=== PATIENT | male | born 1930 | race Caucasian/White ===

== ENCOUNTER 2018-08-31 17:16 | Inpatient (IN) ==
[2018-08-31] MEDS ORDERED: methylPREDNISolone 125 MG/2 ML VIAL IVP ONE (18:28)
[2018-08-31] MEDS ORDERED: Ipratropium/Albuterol Neb 3 ML IH ONE (18:28)
--- NOTE | 2018-08-31 18:38 | Emergency Department Note ---
Disposition Clinical Impression: Acute exacerbation of chronic obstructive airways disease Congestive heart failure Qualifiers: Heart failure type: unspecified Heart failure chronicity: acute on chronic Qualified Code(s): I50.9 - Heart failure, unspecified Disposition: Home, Self-Care Condition: Good Referrals: Agustin Burgess MD [Primary Care Provider] - Time of Disposition: 20:55 SOB HPI - General Chief Complaint: ED Shortness of Breath/Dyspnea Stated Complaint: COPD with wheezing Time Seen by Provider: 08/31/18 17:36 Source: patient, EMS Mode of arrival: EMS Limitations: age Nursing Notes Reviewed: Yes Vital Signs Reviewed: Yes - History of Present Illness Patient presents to the ED via EMS with complaint of shortness of breath. States that he is always a little short of breath but has been worse over the past 3 days with an increase in his usual wheezing. He states symptoms are worse when he is up ambulating and got really bad today when he got out of the shower. He reports a dry cough as well as some rhinorrhea. No sore throat or chest pain. No fever or chills. He has lower extremity swelling which he states is chronic and has not changed. He takes Lasix twice a day for this. states that his PCP ordered an echo a few months ago to check on his heart and told him that he has a little bit of fluid around his heart. He is not aware of a diagnosis of CHF however. He admits to orthopnea but no PND. He was diagnosed with COPD a year ago. He does use albuterol and states he used it 3 times today but only got brief relief. He has are poor historian regarding medications to uses a mail order service. No recent travel or sick contacts. He also has high blood pressure. - Related Data Home Medications Medication Instructions Recorded Confirmed Allopurinol [Zyloprim 100 MG] 100 mg PO DAILY 08/31/18 08/31/18 Furosemide [Lasix] 20 mg PO BID 08/31/18 08/31/18 Hydrochlorothiazide [Microzide] 12.5 mg PO 08/31/18 Tamsulosin HCl [Flomax] 0.4 mg PO 08/31/18 Allergies Allergy/AdvReac Type Severity Reaction Status Date / Time No Known Allergies Allergy Unverified 07/29/15 12:09 Constitutional: Denies: fever, chills, weakness, weight change Eyes: Denies: eye pain, eye discharge, vision change ENT ED: Denies: ear pain, throat pain, dental pain, hearing loss, epistaxis, congestion, dysphagia Cardiovascular: Reports: dyspnea on exertion, edema. Denies: chest pain, palpitations, orthopnea, syncope, paroxysmal nocturnal dyspnea Respiratory: Reports: cough, dyspnea, wheezes. Denies: hemoptysis, stridor, sputum production Gastrointestinal: Denies: abdominal pain, nausea, vomiting, diarrhea, constipation, hematemesis, melena, hematochezia Genitourinary: Denies: urgency, dysuria, frequency, hematuria Musculoskeletal: Denies: back pain, neck pain, arthralgia, myalgia Integumentary: Denies: rash, abrasion, lesions Neurological: Denies: headache, weakness, numbness, paresthesias, confusion, abnormal gait, vertigo Psychiatric: Denies: anxiety, depression, suicidal thoughts, homicidal thoughts, auditory hallucinations, visual hallucinations Endocrine: Denies: fatigue Hematological/Lymphatic: Denies: easy bleeding, easy bruising Allergic/Immunologic: Denies: facial swelling, urticaria Past Medical History - Past Medical History Medical history: Reports: COPD, hypertension, other Psychiatric history: Reports: no psych history - Social History Smoking Status: Never smoker Smokeless Tobacco Status: No Alcohol use: Reports: none Drug use: Reports: none Physical Exam - General Limitations: age General appearance: alert, in no apparent distress - Head Head exam: atraumatic, normocephalic, normal inspection - Eye Eye exam: Present: normal appearance, PERRL, EOMI - ENT ENT exam: normal exam, normal oropharynx, mucous membranes moist - Neck Neck exam: Present: normal inspection, full ROM, trachea midline - Chest Chest inspection: Present: normal inspection, symmetric chest wall rise - Respiratory Respiratory exam: Present: wheezes, prolonged expiratory phase. Absent: respiratory distress - Expanded Respiratory Exam Location: wheezes: Left, Right, Upper, Lower - Cardiovascular Cardiovascular exam: Present: regular rate, normal rhythm, normal heart sounds - Abdominal Exam Abdominal exam: Present: soft, Non-Tender. Absent: tenderness, distention, guarding, rebound, rigidity - Extremities Exam Extremities exam: Present: normal inspection, full ROM, pedal edema (2+ bilaterally). Absent: tenderness - Neurological Exam Neurological exam: Present: alert, oriented X3 - Psychiatric Psychiatric exam: Present: normal affect, normal mood - Skin Skin exam: Present: warm, dry, intact, normal color Course Course Narrative: Presents to the ED with a chronic shortness of breath and wheezing is worse over the past few days only partially relieved with albuterol. On arrival he is mildly hypertensive. Oxygen saturation is 98% on 2 L. He was apparently 93% on room air according to EMS. He had is diffuse wheezing on exam. He will be given a nebulizer treatment and steroids. He also has significant lower extremity edema. Will check chest x-ray and lab work as well. - Reevaluation(s) Reevaluation #1: Lab work shows a chronic stable anemia. Troponin is negative. BNP is elevated at 348. Creatinine is elevated but stable from 3 months ago. Chest x-ray did not show any acute abnormalities. EKG is sinus arrhythmia. Review of his echo from May shows an EF of 50-55% with some mild left diastolic dysfunction, aortic regurg, tricuspid regurg. On reassessment patient states his breathing is a little better and he does have less wheezing. I suspect his symptoms are combination of both COPD and CHF exacerbation and he would benefit from admission for continued respiratory treatments, steroids and IV Lasix. Patient is in agreement. I spoke to the hospitalist precision lens polisher, Dr. Hooks, who has accepted the patient. Time: 20:53 Vital Signs Temperature 98.3 F 08/31/18 17:18 Pulse Rate 68 08/31/18 17:18 Respiratory Rate 18 08/31/18 17:18 Blood Pressure 165/80 08/31/18 17:18 O2 Sat by Pulse Oximetry 98 08/31/18 17:18 Temperature 98.3 F 08/31/18 17:18 Pulse Rate 89 08/31/18 20:34 Respiratory Rate 16 08/31/18 20:34 Blood Pressure 176/107 08/31/18 20:34 O2 Sat by Pulse Oximetry 94 08/31/18 20:34 Oxygen Delivery Oxygen Delivery Nasal Cannula Shortness of Breath/Dyspnea - Differential Diagnosis Likely: acute exacerbation of chronic obstructive airways disease, congestive heart failure - Medical Records Medical records reviewed: Yes I reviewed the patient's medical records. - Lab Data Lab results reviewed: Yes I reviewed the patient's lab results. Result diagrams: 08/31/18 18:42 08/31/18 18:42 Lab Results 08/31/18 08/31/18 08/31/18 Range/Units 18:42 18:42 18:42 WBC 7.1 (4.3-11.1) K/mcL RBC 2.99 L (4.19-5.50) M/mcL Hgb 10.5 L (12.9-16.9) g/dL Hct 31.0 L (37.5-50.1) % MCV 103.7 H (83.0-100.0) fL MCH 35.1 H (28.0-33.3) pg MCHC 33.9 (31.6-35.5) g/dL RDW 14.4 (11.5-14.5) % Plt Count 135 L (140-400) K/mcL MPV 11.2 (9.4-12.4) fL Immature Gran % 0.4 (0-4) % Seg Neutrophils % 71.1 % Lymphocytes % 11.4 % Monocytes % 12.1 % Eosinophils % 4.4 % Basophils % 0.6 % Neutrophils # 5.0 (1.6-8.9) K/mcL Lymphocytes # 0.8 (0.6-4.6) K/mcL Monocytes # 0.9 (0.0-1.3) K/mcL Eosinophils # 0.3 (0.0-0.6) K/mcL Basophils # 0.0 (0.0-0.2) K/mcL Sodium 139 (136-145) mEq/L Potassium 4.8 (3.5-5.1) mEq/L Chloride 103 (98-107) mEq/L Carbon Dioxide 30 H (23-29) mEq/L BUN 32 H (8-23) mg/dL Creatinine 1.42 H (0.70-1.30) mg/dL Est GFR ( Amer) 57 L (> 60) Est GFR (Non-Af Amer) 47 L (> 60) BUN/Creatinine Ratio 23 (6-26) Glucose 93 (70-105) mg/dL Calculated Osmolality 295 (280-300) Calcium 8.3 L (8.6-10.3) mg/dL Troponin I < 0.03 (< 0.04) ng/mL B-Natriuretic Peptide 348 H (Less than 100) pg/mL - Radiology Data Radiology results reviewed: Yes I reviewed the patient's radiology results. ITS Impressions Chest X-Ray 08/31/18 18:28 IMPRESSION: No acute findings. D/ / Nahid Espinoza MD / Nahid Espinoza MD Interpreting Provider: Nahid Espinoza MD - EKG Data EKG attestation: Yes I reviewed and interpreted this EKG. EKG shows normal: Reports: sinus rhythm Rate: Reports: normal Rhythm: Reports: arrhythmia Scenic/QRS: Reports: normal When compared to previous EKG there are: previous EKG unavailable Interpretation: Reports: no acute changes
[2018-08-31 18:51] LABS: Basophils % 0.6 %; Eosinophils # 0.3 K/mcL (0.0-0.6); Eosinophils % 4.4 %; Hemoglobin 10.5 g/dL (12.9-16.9); Immature Granulocytes % 0.4 % (0-4); Lymphocytes # 0.8 K/mcL (0.6-4.6); Lymphocytes % 11.4 %; Mean Corpuscular HGB Conc 33.9 g/dL (31.6-35.5); Mean Corpuscular Hemoglobin 35.1 pg (28.0-33.3); Mean Corpuscular Volume 103.7 fL (83.0-100.0); Mean Platelet Volume 11.2 fL (9.4-12.4); Monocytes # 0.9 K/mcL (0.0-1.3); Monocytes % 12.1 %; Platelet Count 135 K/mcL (140-400); Red Blood Count 2.99 M/mcL (4.19-5.50); Red Cell Distribution Width 14.4 % (11.5-14.5); Segmented Neutrophils % 71.1 %; White Blood Count 7.1 K/mcL (4.3-11.1)
[2018-08-31 19:10] LABS: BUN/Creatinine Ratio 23 (6-26); Blood Urea Nitrogen 32 mg/dL (8-23); Calcium 8.3 mg/dL (8.6-10.3); Carbon Dioxide 30 mEq/L (23-29); Chloride 103 mEq/L (98-107); Glucose 93 mg/dL (70-105); Osmolality,Calculated 295 (280-300); Potassium 4.8 mEq/L (3.5-5.1); Sodium 139 mEq/L (136-145); Troponin I < 0.03 ng/mL (< 0.04); eGFR For African Americans 57 (> 60); eGFR For Non-African Americans 47 (> 60)
[2018-08-31] MEDS ORDERED: Naloxone 0.4 MG/ML INJ IVP PRN ×2 (20:56→21:55)
[2018-08-31] MEDS ORDERED: Furosemide 20 MG/2 ML VIAL IVP ONE (20:58)
[2018-08-31] MEDS ORDERED: Ipratropium/Albuterol Neb 3 ML IH SCH (21:00)
[2018-08-31] MEDS ORDERED: amLODIPine 5 MG TABLET PO ONE (22:31)
[2018-09-01] MEDS: Ipratropium/Albuterol Neb 3 ML IH SCH ×3 (01:16→05:52)
[2018-09-01] MEDS ORDERED: Ipratropium/Albuterol Neb 3 ML IH SCH (12:00)
--- NOTE | 2018-09-01 12:21 | Internal Med History&Physical ---
Date of Encounter: 09/01/18 Time of Encounter: 11:45 Assessment and Plan (1) Congestive heart failure Current visit: Yes Status: Acute IV Lasix was given in emergency room and will be continued. Coreg and lisinopril will also be started. Qualifiers: Heart failure type: diastolic Heart failure chronicity: acute on chronic Qualified Code(s): I50.33 - Acute on chronic diastolic (congestive) heart failure (2) Macrocytic anemia Current visit: Yes Status: Acute Anemia testing will be ordered. (3) Hypertension Current visit: Yes Status: Chronic Blood pressure has been consistently elevated above desirable range since admission. Start lisinopril and Coreg with IV Lasix Qualifiers: Hypertension type: essential hypertension Qualified Code(s): I10 - Essential (primary) hypertension (4) CKD (chronic kidney disease) stage 3, GFR 30-59 ml/min Current visit: Yes Status: Chronic Monitor renal indices. (5) Gout Current visit: Yes Status: Chronic Uric acid level was 4.2 on 05/31/2018. Continue present dose allopurinol. Qualifiers: Gout site: unspecified site Gout etiology: unspecified cause Chronicity: chronic Presence of tophus: without tophus Qualified Code(s): M1A.9XX0 - Chronic gout, unspecified, without tophus (tophi) (6) Elevated TSH Current visit: Yes Status: Acute TSH was 6.107 on 05/31/2018. Recheck in a.m. Internal Medicine - H&P: HPI Chief complaint: Dyspnea Admitted From: Emergency Dept Plans for Post Hospital Care: Home History of present illness: Mr. Myles is a 88 year old male who came to emergency room complaining of increased dyspnea over the preceding 3 days. It had worsened the morning of admission. He was evaluated in emergency room and was felt to have exacerbation of COPD. He was admitted to [facility] floor for ongoing care needs. Respiratory history is significant for being a lifelong nonsmoker. Pulmonary function testing 05/26/2017 showed FVC 63% predicted, FEV1 62% predicted, FEV1/FVC 60%, MVV 54% predicted, RV 120% predicted, and DLCO (corrected) 61%. There was insignificant change in FEV1 and FVC postbronchodilator. 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 Cardiovascular history is significant for hypertension. Echocardiogram 05/26/2018 showed LVEF of 50-55%. E/A ratio was 0.7. There was mild aortic regurgitation and mild tricuspid regurgitation. A small pericardial effusion without evidence of tamponade was seen. Estimated RVSP was 49 mmHg. He denies [place] DVT or pulmonary embolus. Regadenoson EST 07/29/2015 showed LVEF of 51%. Perfusion imaging was negative for ischemia or infarct. EKG portion was nondiagnostic for ischemia. Past Med Surg Social Fam HX - Past Medical History Medical history: COPD, hypertension, other Psychiatric history: no psych history - Past Surgical History Additional surgical history: Bilateral knees - Social History Smoking Status: Never smoker Smokeless Tobacco Status: No Alcohol use: none Drug use: none - Family History Mother Living Status: Internal Medicine - H&P: Meds Allopurinol [Zyloprim 100 MG] 100 mg PO DAILY 08/31/18 [History] Furosemide [Lasix] 20 mg PO BID 08/31/18 [History] Hydrochlorothiazide [Microzide] 12.5 mg PO 08/31/18 [History] Tamsulosin HCl [Flomax] 0.4 mg PO 08/31/18 [History] Allergy/AdvReac Type Severity Reaction Status Date / Time No Known Allergies Allergy Unverified 07/29/15 12:09 All Systems PM: A 10-system review of systems was performed and is negative for pertinent findings except as documented above in the HPI. Review of systems: Gen.: He states his weight has been stable for several months Cardiovascular: As per history of present illness Respiratory: As per history of present illness GI: He denies disorders of his liver gallbladder or exocrine pancreas : He has BPH. He had prostate CA diagnosed 2008 and had 46 XRT. He is presumed cancer free. He was unaware he had chronic kidney disease stage 3 on all labs since April 2016 Neurologic: He denies large distribution strokes or seizures. Endocrine: He denies diabetes thyroid disease or hyperlipidemia Hematology/oncology: He had prostate cancer as mentioned. He was unaware he had macrocytic anemia. He denies other blood disorders or internal malignancies Psychiatric: He has feelings of depression at times but is not on medication. He denies other mental health diagnoses. [place] skeletal: He has history of gout. He had bilateral total knee replacements 1995. - Constitutional Vitals: Temp Pulse Resp BP Pulse Ox 97.8 F 77 22 161/81 97 09/01/18 10:56 09/01/18 10:56 09/01/18 10:56 09/01/18 10:56 09/01/18 10:56 Exam: Gen.: He is a well-developed obese male lying in bed who appears slightly dyspneic HEENT: Head is atraumatic and normocephalic. Eyes: EOMI. There is no scleral icterus. Mouth: Mucosa is moist. Neck: Supple and nontender. There is no thyromegaly or adenopathy noted. Heart: Regular without murmurs gallops or ectopics Lungs: No wheezes crackles or egophony are heard Abdomen: He has a large abdomen. It is nontender to palpation. He has a 3 cm umbilical hernia which is easily reducible. Extremities: He has 3+ edema of the dorsum of feet and lower legs bilaterally. Dorsalis pedis and posterior tibial pulses are not palpable. Neurologic: Mental status: He is talkative and seems to be a good historian. He is slightly hard of hearing. Cranial nerves: Smile is symmetric. Forehead wri nkles bilaterally. Tongue protrudes midline. EOMI. Motor: There is no pronator drift. Cerebellar: Finger to nose is intact bilaterally. Skin: Warm and dry. He has well-healed surgical scars over his knees bilaterally. Internal Med - H&P Results - Labs CBC & Chem 7: 08/31/18 18:42 08/31/18 18:42 Labs: Short CBC 08/31/18 Range/Units 18:42 WBC 7.1 (4.3-11.1) K/mcL Hgb 10.5 L (12.9-16.9) g/dL Hct 31.0 L (37.5-50.1) % Plt Count 135 L (140-400) K/mcL Neutrophils # 5.0 (1.6-8.9) K/mcL BMP 08/31/18 18:42 Sodium 139 Potassium 4.8 Chloride 103 Carbon Dioxide 30 H BUN 32 H Creatinine 1.42 H Glucose 93 Calcium 8.3 L Cardiac Enzymes 08/31/18 Range/Units 18:42 Troponin I < 0.03 (< 0.04) ng/mL - Impressions ITS Impressions Chest X-Ray 08/31/18 18:28 IMPRESSION: No acute findings. D/ / Nahid Espinoza MD / Nahid Espinoza MD Interpreting Provider: Nahid Espinoza MD - VTE Reasons for not Prescribing Prophylaxis: Treatment not Indicated - Low risk for VTE
[2018-09-01] MEDS: Furosemide 40 MG/4 ML VIAL IVP SCH ×2 (15:05→17:07)
[2018-09-02] MEDS: *HR* Enoxaparin 40 MG/0.4 ML SYRINGE SQ SCH (05:59)
[2018-09-02 06:45] LABS: Basophils % 0.1 %; Hematocrit 31.2 % (37.5-50.1); Hemoglobin 10.4 g/dL (12.9-16.9); Immature Granulocytes % 0.8 % (0-4); Lymphocytes # 0.8 K/mcL (0.6-4.6); Mean Corpuscular HGB Conc 33.3 g/dL (31.6-35.5); Mean Corpuscular Hemoglobin 34.4 pg (28.0-33.3); Mean Corpuscular Volume 103.3 fL (83.0-100.0); Mean Platelet Volume 11.1 fL (9.4-12.4); Monocytes % 8.8 %; Neutrophils # 9.8 K/mcL (1.6-8.9); Platelet Count 162 K/mcL (140-400); Red Blood Count 3.02 M/mcL (4.19-5.50); Red Cell Distribution Width 14.1 % (11.5-14.5); Segmented Neutrophils % 83.3 %; White Blood Count 11.8 K/mcL (4.3-11.1)
[2018-09-02 07:08] LABS: Magnesium 2.3 mg/dL (1.6-2.6)
[2018-09-02 07:25] LABS: Thyroid Stimulating Hormone 1.269 mcIU/mL (0.340-5.600)
[2018-09-02 09:46] LABS: Folate 12.3 ng/mL (3.0-16.0)
[2018-09-02] MEDS: Furosemide 40 MG/4 ML VIAL IVP SCH ×2 (09:52→17:26)
--- NOTE | 2018-09-02 16:45 | Internal Med Progress Note ---
Date of Encounter: 09/02/18 Time of Encounter: 16:30 - Assessment and plan (1) Congestive heart failure Current Visit: Yes Status: Acute Assessment and plan: September 02. Continue Coreg, lisinopril, and IV Lasix. Chest x-ray will be ordered to further evaluate dyspnea. Qualifiers: Heart failure type: diastolic Heart failure chronicity: acute on chronic Qualified Code(s): I50.33 - Acute on chronic diastolic (congestive) heart failure (2) Macrocytic anemia Current Visit: Yes Status: Acute Assessment and plan: September 02. Anemia testing showed iron 67, transferrin saturation 24%, transferrin 199, ferritin 112, B12 284, and folate 12.3. TSH was normal at 1.269. Hemoglobin minimally changed at 10.4. (3) Hypertension Current Visit: Yes Status: Chronic Assessment and plan: September 02. Blood pressure improved. Continue lisinopril and Coreg with IV Lasix. Qualifiers: Hypertension type: essential hypertension Qualified Code(s): I10 - Essential (primary) hypertension (4) CKD (chronic kidney disease) stage 3, GFR 30-59 ml/min Current Visit: Yes Status: Chronic Assessment and plan: September 02. Monitor renal indices. (5) Gout Current Visit: Yes Status: Chronic Assessment and plan: September 02. Uric acid level normal at 4.2 on 05/31/2018. Continue present dose allopurinol. Qualifiers: Gout site: unspecified site Gout etiology: unspecified cause Chronicity: chronic Presence of tophus: without tophus Qualified Code(s): M1A.9XX0 - Chronic gout, unspecified, without tophus (tophi) (6) Elevated TSH Current Visit: Yes Status: Acute Assessment and plan: September 02. TSH normal at 1.269. - Subjective Interval history: September 02. He has had worsening dyspnea onset earlier today. He denies any pain. - Constitutional Vitals: Temp Pulse Resp BP Pulse Ox 97.2 F L 71 22 131/66 98 09/02/18 14:38 09/02/18 14:38 09/02/18 14:38 09/02/18 14:38 09/02/18 14:38 Exam: He has prolonged expiratory phase and mild diffuse wheezing. No inspiratory crackles are heard. Edema has lessened slightly in his lower legs. I reviewed his medications and lab results. Internal Medicine: Result - Labs CBC & Chem 7: 09/02/18 06:38 08/31/18 18:42 Labs: Short CBC 09/02/18 Range/Units 06:38 WBC 11.8 H D (4.3-11.1) K/mcL Hgb 10.4 L (12.9-16.9) g/dL Hct 31.2 L (37.5-50.1) % Plt Count 162 (140-400) K/mcL Neutrophils # 9.8 H (1.6-8.9) K/mcL - VTE Reasons for not Prescribing Prophylaxis: Treatment not Indicated - Low risk for VTE Consult Discharge Plan - Plan
[2018-09-02 17:07] LABS: Basophils % 0.1 %; Eosinophils % 0.3 %; Hemoglobin 10.2 g/dL (12.9-16.9); Immature Granulocytes % 0.6 % (0-4); Lymphocytes # 1.1 K/mcL (0.6-4.6); Lymphocytes % 11.2 %; Mean Corpuscular HGB Conc 32.9 g/dL (31.6-35.5); Mean Corpuscular Hemoglobin 34.6 pg (28.0-33.3); Mean Corpuscular Volume 105.1 fL (83.0-100.0); Mean Platelet Volume 10.7 fL (9.4-12.4); Monocytes # 0.9 K/mcL (0.0-1.3); Monocytes % 9.1 %; Neutrophils # 7.9 K/mcL (1.6-8.9); Platelet Count 157 K/mcL (140-400); Red Blood Count 2.95 M/mcL (4.19-5.50); Red Cell Distribution Width 14.6 % (11.5-14.5); Segmented Neutrophils % 78.7 %
[2018-09-02 17:25] LABS: Potassium 4.5 mEq/L (3.5-5.1)
[2018-09-02] MEDS ORDERED: Albuterol 2.5 MG/3 ML NEBULIZER IH PRN (18:23)
[2018-09-03] MEDS: *HR* Enoxaparin 40 MG/0.4 ML SYRINGE SQ SCH (05:52)
[2018-09-03] MEDS: Furosemide 40 MG/4 ML VIAL IVP SCH (09:59)
--- NOTE | 2018-09-03 10:19 | Internal Med Progress Note ---
Date of Encounter: 09/03/18 Time of Encounter: 10:10 - Assessment and plan (1) Congestive heart failure Current Visit: Yes Status: Acute Assessment and plan: September 02. Continue Coreg, lisinopril, and IV Lasix. Chest x-ray will be ordered to further evaluate dyspnea. September 03. BN peptide decreased yesterday to 220. Chest x-ray showed no acute pathology. Continue Coreg. Reduce IV Lasix and discontinue lisinopril because of worsening azotemia. Imdur will be started. Qualifiers: Heart failure type: diastolic Heart failure chronicity: acute on chronic Qualified Code(s): I50.33 - Acute on chronic diastolic (congestive) heart failure (2) Macrocytic anemia Current Visit: Yes Status: Acute Assessment and plan: September 02. Anemia testing showed iron 67, transferrin saturation 24%, transferrin 199, ferritin 112, B12 284, and folate 12.3. TSH was normal at 1.269. Hemoglobin minimally changed at 10.4. (3) Hypertension Current Visit: Yes Status: Chronic Assessment and plan: September 02. Blood pressure improved. Continue lisinopril and Coreg with IV Lasix. September 03. Discontinue lisinopril and reduce IV Lasix due to worsening azotemia. Continue Coreg. Qualifiers: Hypertension type: essential hypertension Qualified Code(s): I10 - Essential (primary) hypertension (4) CKD (chronic kidney disease) stage 3, GFR 30-59 ml/min Current Visit: Yes Status: Chronic Assessment and plan: September 02. Monitor renal indices. September 03. BUN and creatinine have risen to 65 and 1.81 respectively yesterday. Discontinue lisinopril and reduce IV Lasix. (5) Gout Current Visit: Yes Status: Chronic Assessment and plan: September 02. Uric acid level normal at 4.2 on 05/31/2018. Continue present dose allopurinol. Qualifiers: Gout site: unspecified site Gout etiology: unspecified cause Chronicity: chronic Presence of tophus: without tophus Qualified Code(s): M1A.9XX0 - Chronic gout, unspecified, without tophus (tophi) (6) Elevated TSH Current Visit: Yes Status: Acute Assessment and plan: September 02. TSH normal at 1.269. - Subjective Interval history: September 02. He has had worsening dyspnea onset earlier today. He denies any pain. September 03. He has no new complaints. - Constitutional Vitals: Temp Pulse Resp BP Pulse Ox 98.1 F 62 22 141/68 100 09/03/18 07:30 09/03/18 07:30 09/03/18 07:30 09/03/18 07:30 09/03/18 07:30 Exam: He is resting comfortably in bed. Lungs show slight expiratory wheezing more on the right than the left. Heart is regular without murmurs gallops or ectopics. Extremities show further decreased edema. I reviewed his medications and lab results. Internal Medicine: Result - Labs CBC & Chem 7: 09/02/18 16:55 09/02/18 16:55 Labs: Short CBC 09/02/18 Range/Units 16:55 WBC 10.0 (4.3-11.1) K/mcL Hgb 10.2 L (12.9-16.9) g/dL Hct 31.0 L (37.5-50.1) % Plt Count 157 (140-400) K/mcL Neutrophils # 7.9 (1.6-8.9) K/mcL BMP 09/02/18 16:55 Sodium 142 Potassium 4.5 Chloride 106 Carbon Dioxide 28 BUN 65 H Creatinine 1.81 H Glucose 100 Calcium 8.0 L - Impressions Impressions Chest X-Ray 09/02/18 16:40 IMPRESSION: No acute process. D/ / Darell Tran MD / Darell Tran MD Interpreting Provider: Darell Tran MD - VTE Reasons for not Prescribing Prophylaxis: Treatment not Indicated - Low risk for VTE Consult Discharge Plan - Plan Referrals: Agustin Burgess MD [Primary Care Provider] - 1 week
[2018-09-03] MEDS: Isosorbide MONOnitrate (24 HR) 30 MG TAB.ER.24H PO SCH (11:53)
[2018-09-04] MEDS: *HR* Enoxaparin 40 MG/0.4 ML SYRINGE SQ SCH (05:46)
[2018-09-04 06:07] LABS: Basophils % 0.4 %; Eosinophils # 0.3 K/mcL (0.0-0.6); Eosinophils % 3.2 %; Hematocrit 30.6 % (37.5-50.1); Hemoglobin 9.9 g/dL (12.9-16.9); Immature Granulocytes % 0.4 % (0-4); Lymphocytes # 1.4 K/mcL (0.6-4.6); Lymphocytes % 18.2 %; Mean Corpuscular HGB Conc 32.4 g/dL (31.6-35.5); Mean Corpuscular Hemoglobin 34.4 pg (28.0-33.3); Mean Corpuscular Volume 106.3 fL (83.0-100.0); Mean Platelet Volume 10.7 fL (9.4-12.4); Monocytes # 0.8 K/mcL (0.0-1.3); Monocytes % 9.9 %; Neutrophils # 5.2 K/mcL (1.6-8.9); Platelet Count 174 K/mcL (140-400); Red Blood Count 2.88 M/mcL (4.19-5.50); Red Cell Distribution Width 14.3 % (11.5-14.5); Segmented Neutrophils % 67.9 %; White Blood Count 7.7 K/mcL (4.3-11.1)
[2018-09-04 06:24] VITALS: BP 133/60
[2018-09-04 06:27] LABS: Potassium 4.5 mEq/L (3.5-5.1)
[2018-09-04] MEDS ORDERED: Furosemide 40 MG/4 ML VIAL IVP SCH (09:00)
[2018-09-04] MEDS: Isosorbide MONOnitrate (24 HR) 30 MG TAB.ER.24H PO SCH (09:08)
--- NOTE | 2018-09-04 10:10 | Discharge Summary ---
Orders not resulted at time of discharge: Pending orders 08/31/18 18:28 ECG 12 lead ECG [ECG] Stat Date of Encounter: 09/04/18 Time of Encounter: 09:55 - Discharge Diagnosis (1) Congestive heart failure Priority: Primary Status: Acute Qualifiers: Heart failure type: diastolic Heart failure chronicity: acute on chronic Qualified Code(s): I50.33 - Acute on chronic diastolic (congestive) heart failure (2) Macrocytic anemia Priority: Secondary Status: Acute (3) Hypertension Priority: Secondary Status: Chronic Qualifiers: Hypertension type: essential hypertension Qualified Code(s): I10 - Essential (primary) hypertension (4) CKD (chronic kidney disease) stage 3, GFR 30-59 ml/min Priority: Secondary Status: Chronic (5) Gout Priority: Secondary Status: Chronic Qualifiers: Gout site: unspecified site Gout etiology: unspecified cause Chronicity: chronic Presence of tophus: without tophus Qualified Code(s): M1A.9XX0 - Chronic gout, unspecified, without tophus (tophi) (6) Elevated TSH Priority: Secondary Status: Resolved Hospital course: Mr. Myles is a 88 year old male who came to emergency room complaining of increased dyspnea over the preceding 3 days. It had worsened the morning of admission. He was evaluated in emergency room and was felt to have exacerbation of COPD. He was admitted to [facility] floor for ongoing care needs. Initial orders were written by the emergency room physician. I saw him on September 01 and performed a history and physical. He was given IV Lasix in emergency room for heart failure. Coreg and lisinopril were started. Lisinopril was discontinued when follow-up labs showed worsening azotemia. Imdur was added. BN peptide improved to 126 by day of discharge to swing bed. There was significant lessening of edema. It was felt he would benefit from ongoing treatment in swing bed. Anemia testing showed iron 67, transferrin saturation 24%, transferrin 199, ferritin 112, B12 284, and folate 12.3. TSH was normal at 1.269. He will have PT and OT evaluation and continue treatment in swing bed. - Time Spent with Patient Total time spent providing and/or coordinating discharge services: - Discharge Medications Prescriptions: New Carvedilol [Coreg] 6.25 mg PO BIDWM tablet Tamsulosin [Flomax] 0.8 mg PO DAILY 365 Days cap.er.24h Isosorbide MONOnitrate (24 HR) [Imdur] 30 mg PO DAILY tab.er.24h Enoxaparin [Lovenox] 40 mg SQ 0600 syringe Albuterol Neb [Proventil Neb] 2.5 mg IH Q2H PRN inhsol PRN Reason: Shortness Of Breath/Wheezing Continued Allopurinol [Zyloprim 100 MG] 300 mg PO DAILY Discontinued Furosemide [Lasix] 40 mg PO BID Terazosin [Hytrin] 10 mg PO HS Losartan [Cozaar] 100 mg PO DAILY Home Medications: Allopurinol [Zyloprim 100 MG] 300 mg PO DAILY 08/31/18 [History] Albuterol Neb [Proventil Neb] 2.5 mg IH Q2H PRN inhsol 09/04/18 [Rx] Carvedilol [Coreg] 6.25 mg PO BIDWM tablet 09/04/18 [Rx] Enoxaparin [Lovenox] 40 mg SQ 0600 syringe 09/04/18 [Rx] Isosorbide MONOnitrate (24 HR) [Imdur] 30 mg PO DAILY tab.er.24h 09/04/18 [Rx] Tamsulosin [Flomax] 0.8 mg PO DAILY 365 Days cap.er.24h 09/04/18 [Rx] Allergies/Adverse Reactions: Allergy/AdvReac Type Severity Reaction Status Date / Time No Known Allergies Allergy Unverified 07/29/15 12:09 Date of admission: 09/01/18 12:40 Primary care physician: Agustin Burgess MD - Constitutional Vitals: Temp Pulse Resp BP Pulse Ox 97.4 F L 61 20 133/60 96 09/04/18 06:22 09/04/18 06:22 09/04/18 06:22 09/04/18 06:22 09/04/18 06:22 - Patient Status Disposition: Transfer Hospital Swing Bed Condition: Good - Discharge Instructions Forms: ED Satisfaction Letter - Diet and Activity Activity: as per physical therapy Diet: low fat, low cholesterol, low salt diet - VTE Reasons for not Prescribing Prophylaxis: Treatment not Indicated - Low risk for VTE
--- NOTE | 2018-09-06 08:59 | Electrocardiograph Report ---
[place] [id number] Test Date: 2018-08-31 Pat Name: Adonis Myles Department: EDP-12 Room: [facility] Gender: M [employer]: : 1930 Requested By: Zahida Decker Order Number: [id number] Reading MD: Elian Gardner Measurements Intervals [place] Rate: 90 P: 0 MS: 209 QRS: -12 QRSD: 111 T: 57 QT: 402 QTc: 492 Interpretive Statements Sinus rhythm with first degree av block and blocked pac Borderline low voltage, extremity leads Borderline prolonged QT interval Electronically Signed On 09-06-2018 8:57:56 EDT by Elian Gardner
== END 2018-09-04 14:34 | disposition other institution (70) | DRG 291 ==
LOC: EMEROOPIK 17:16 → INPPIK 17:16
PROVIDERS: ADMIT Internal Medicine; ATTEND Internal Medicine

== ENCOUNTER 2018-09-04 13:17 | Inpatient (IN) ==
[2018-09-04] MEDS ORDERED: Albuterol 2.5 MG/3 ML NEBULIZER IH PRN (14:42)
[2018-09-05] MEDS: *HR* Enoxaparin 40 MG/0.4 ML SYRINGE SQ SCH (05:09)
[2018-09-05] MEDS: Isosorbide MONOnitrate (24 HR) 30 MG TAB.ER.24H PO SCH (09:38)
[2018-09-06] MEDS: *HR* Enoxaparin 40 MG/0.4 ML SYRINGE SQ SCH (05:44)
[2018-09-06 06:17] LABS: Basophils % 0.4 %; Eosinophils # 0.2 K/mcL (0.0-0.6); Eosinophils % 4.5 %; Hemoglobin 9.2 g/dL (12.9-16.9); Lymphocytes # 0.9 K/mcL (0.6-4.6); Lymphocytes % 17.4 %; Mean Corpuscular HGB Conc 32.9 g/dL (31.6-35.5); Mean Corpuscular Hemoglobin 35.4 pg (28.0-33.3); Mean Corpuscular Volume 107.7 fL (83.0-100.0); Monocytes # 0.6 K/mcL (0.0-1.3); Monocytes % 11.2 %; Neutrophils # 3.4 K/mcL (1.6-8.9); Platelet Count 126 K/mcL (140-400); Red Cell Distribution Width 14.2 % (11.5-14.5); Segmented Neutrophils % 65.5 %; White Blood Count 5.1 K/mcL (4.3-11.1)
[2018-09-06 06:37] LABS: Calcium 7.9 mg/dL (8.6-10.3); Potassium 4.4 mEq/L (3.5-5.1)
[2018-09-06 07:24] LABS: Platelet Estimate Decreased (Normal)
[2018-09-06] MEDS: Isosorbide MONOnitrate (24 HR) 30 MG TAB.ER.24H PO SCH (09:53)
--- NOTE | 2018-09-06 17:42 | Internal Med Progress Note ---
Date of Encounter: 09/06/18 Time of Encounter: 15:32 - Assessment and plan (1) Congestive heart failure Current Visit: No Status: Acute Assessment and plan: September 06. BN peptide has risen to 378. Start low-dose Bumex. Increase Coreg and Imdur. Qualifiers: Heart failure type: diastolic Heart failure chronicity: acute on chronic Qualified Code(s): I50.33 - Acute on chronic diastolic (congestive) heart failure (2) Macrocytic anemia Current Visit: No Status: Acute Assessment and plan: September 06. B12, folate, and TSH were normal on 09/02/2018. MMA will be checked. Hemoglobin has decreased to 9.2. Recheck CBC in a.m. (3) Hypertension Current Visit: No Status: Chronic Assessment and plan: September 06. Increase Coreg and Imdur as above. Start Bumex. Qualifiers: Hypertension type: essential hypertension Qualified Code(s): I10 - Essential (primary) hypertension (4) CKD (chronic kidney disease) stage 3, GFR 30-59 ml/min Current Visit: No Status: Chronic Assessment and plan: September 06. Monitor renal indices. - Subjective Interval history: September 06. He was hospitalized in acute-care August 31- after presenting with dyspnea with acute CHF. He responded satisfactorily to treatment with decreased edema and dyspnea. He was discharged to swing bed for ongoing care needs. He has no new complaints today. - Constitutional Vitals: Temp Pulse Resp BP Pulse Ox 97.6 F 54 16 157/68 95 09/06/18 06:20 09/06/18 09:59 09/06/18 06:20 09/06/18 06:20 09/06/18 09:59 Exam: He is sitting in a chair at bedside. His affect is overall cheerful. He has equivocal mild dyspnea. Extremities show trace edema bilaterally. I reviewed his medications and lab results. Internal Medicine: Result - Labs CBC & Chem 7: 09/06/18 05:49 09/06/18 05:49 Labs: Short CBC 09/06/18 Range/Units 05:49 WBC 5.1 (4.3-11.1) K/mcL Hgb 9.2 L (12.9-16.9) g/dL Hct 28.0 L (37.5-50.1) % Plt Count 126 L (140-400) K/mcL Neutrophils # 3.4 (1.6-8.9) K/mcL BMP 09/06/18 05:49 Sodium 145 Potassium 4.4 Chloride 111 H Carbon Dioxide 30 H BUN 68 H Creatinine 1.41 H Glucose 105 Calcium 7.9 L Consult Discharge Plan - Plan Referrals: Agustin Burgess MD [Primary Care Provider] - 1 week
[2018-09-06] MEDS: Bumetanide 1 MG TABLET PO SCH (18:13)
[2018-09-07 05:13] LABS: Basophils % 0.6 %; Eosinophils # 0.3 K/mcL (0.0-0.6); Eosinophils % 4.8 %; Hematocrit 29.2 % (37.5-50.1); Hemoglobin 9.4 g/dL (12.9-16.9); Immature Granulocytes % 0.6 % (0-4); Lymphocytes # 0.9 K/mcL (0.6-4.6); Lymphocytes % 17.9 %; Mean Corpuscular HGB Conc 32.2 g/dL (31.6-35.5); Mean Corpuscular Hemoglobin 34.3 pg (28.0-33.3); Mean Corpuscular Volume 106.6 fL (83.0-100.0); Mean Platelet Volume 10.7 fL (9.4-12.4); Monocytes # 0.5 K/mcL (0.0-1.3); Monocytes % 9.9 %; Neutrophils # 3.5 K/mcL (1.6-8.9); Platelet Count 140 K/mcL (140-400); Red Blood Count 2.74 M/mcL (4.19-5.50); Red Cell Distribution Width 14.2 % (11.5-14.5); Segmented Neutrophils % 66.2 %; White Blood Count 5.2 K/mcL (4.3-11.1)
[2018-09-07 05:36] LABS: BUN/Creatinine Ratio 48 (6-26); Blood Urea Nitrogen 63 mg/dL (8-23); Calcium 7.9 mg/dL (8.6-10.3); Carbon Dioxide 29 mEq/L (23-29); Chloride 111 mEq/L (98-107); Glucose 107 mg/dL (70-105); Osmolality,Calculated 316 (280-300); Potassium 4.2 mEq/L (3.5-5.1); Sodium 144 mEq/L (136-145); eGFR For African Americans > 60 (> 60); eGFR For Non-African Americans 52 (> 60)
[2018-09-07] MEDS: *HR* Enoxaparin 40 MG/0.4 ML SYRINGE SQ SCH (05:37)
[2018-09-07] MEDS: Bumetanide 1 MG TABLET PO SCH (09:57)
[2018-09-07] MEDS: Isosorbide MONOnitrate (24 HR) 30 MG TAB.ER.24H PO SCH (10:06)
[2018-09-08] MEDS: *HR* Enoxaparin 40 MG/0.4 ML SYRINGE SQ SCH (05:15)
[2018-09-08] MEDS: Isosorbide MONOnitrate (24 HR) 30 MG TAB.ER.24H PO SCH (09:47)
[2018-09-08] MEDS: Bumetanide 1 MG TABLET PO SCH (09:47)
[2018-09-09] MEDS: ALPRAZolam 0.5 MG TABLET PO PRN ×2 (00:13→22:14)
[2018-09-09] MEDS: Bumetanide 1 MG TABLET PO SCH (09:58)
[2018-09-09] MEDS: Isosorbide MONOnitrate (24 HR) 30 MG TAB.ER.24H PO SCH (09:59)
[2018-09-09] MEDS: *HR* Enoxaparin 40 MG/0.4 ML SYRINGE SQ SCH (10:00)
[2018-09-09 21:37] LABS: Basophils % 0.4 %; Eosinophils # 0.2 K/mcL (0.0-0.6); Eosinophils % 3.3 %; Hematocrit 28.3 % (37.5-50.1); Hemoglobin 9.4 g/dL (12.9-16.9); Immature Granulocytes % 0.9 % (0-4); Lymphocytes # 0.7 K/mcL (0.6-4.6); Lymphocytes % 16.1 %; Mean Corpuscular HGB Conc 33.2 g/dL (31.6-35.5); Mean Corpuscular Hemoglobin 35.2 pg (28.0-33.3); Mean Platelet Volume 11.6 fL (9.4-12.4); Monocytes # 0.5 K/mcL (0.0-1.3); Neutrophils # 3.2 K/mcL (1.6-8.9); Platelet Count 158 K/mcL (140-400); Red Blood Count 2.67 M/mcL (4.19-5.50); Red Cell Distribution Width 14.1 % (11.5-14.5); Segmented Neutrophils % 69.3 %; White Blood Count 4.6 K/mcL (4.3-11.1)
[2018-09-09 21:53] LABS: BUN/Creatinine Ratio 41 (6-26); Blood Urea Nitrogen 47 mg/dL (8-23); Calcium 8.1 mg/dL (8.6-10.3); Carbon Dioxide 28 mEq/L (23-29); Chloride 111 mEq/L (98-107); Glucose 153 mg/dL (70-105); Osmolality,Calculated 315 (280-300); Potassium 4.6 mEq/L (3.5-5.1); Sodium 145 mEq/L (136-145); eGFR For African Americans > 60 (> 60); eGFR For Non-African Americans 60 (> 60)
[2018-09-09 22:38] LABS: Bilirubin,Urine Negative (Negative); Blood,Urine Trace-intact (Negative); Clarity,Urine Clear (Clear); Color,Urine Yellow (Yellow); Glucose,Urine (UA) Normal (Normal); Ketones,Urine Negative (Negative); Leukocyte Esterase,Urine Negative (Negative); Nitrite,Urine Negative (Negative); Protein,Urine 100 mg/dL (Neg-Trace); Specific Gravity,Urine 1.015 (1.010-1.025); Urobilinogen,Urine Normal (Normal)
[2018-09-09 23:07] LABS: Hyaline Casts,Urine Few per lpf (None-Few); Mucus,Urine Few (Few); RBC,Urine 0-3 per hpf (0-3); Squamous Epithelial Cell,Urine Few per lpf (None-Few); WBC,Urine 0-3 per hpf (0-3)
[2018-09-09 23:08] LABS: Bacteria,Urine Few per hpf (None-Few)
[2018-09-10] MEDS: *HR* Enoxaparin 40 MG/0.4 ML SYRINGE SQ SCH (06:54)
[2018-09-10] MEDS: Bumetanide 1 MG TABLET PO SCH (09:17)
[2018-09-10] MEDS: Isosorbide MONOnitrate (24 HR) 30 MG TAB.ER.24H PO SCH (09:17)
--- NOTE | 2018-09-10 17:00 | Internal Med Progress Note ---
Date of Encounter: 09/10/18 Time of Encounter: 16:45 - Assessment and plan (1) Congestive heart failure Current Visit: No Status: Acute Assessment and plan: September 06. BN peptide has risen to 378. Start low-dose Bumex. Increase Coreg and Imdur. September 10. BN peptide unchanged. Increase Bumex, Coreg, and Imdur. Qualifiers: Heart failure type: diastolic Heart failure chronicity: acute on chronic Qualified Code(s): I50.33 - Acute on chronic diastolic (congestive) heart failure (2) Macrocytic anemia Current Visit: No Status: Acute Assessment and plan: September 06. B12, folate, and TSH were normal on 09/02/2018. MMA will be checked. Hemoglobin has decreased to 9.2. Recheck CBC in a.m. September 10. Hemoglobin stable at 9.4. MMA normal. Continue to monitor. (3) Hypertension Current Visit: No Status: Chronic Assessment and plan: September 06. Increase Coreg and Imdur as above. Start Bumex. September 10. Blood pressure drifting slightly higher. Increase Bumex, Coreg, and Imdur. Qualifiers: Hypertension type: essential hypertension Qualified Code(s): I10 - Essential (primary) hypertension (4) CKD (chronic kidney disease) stage 3, GFR 30-59 ml/min Current Visit: No Status: Chronic Assessment and plan: September 06. Monitor renal indices. September 10. Creatinine decreased to 1.16 with estimated GFR 60. Continue to monitor. (5) Body temperature low Current Visit: Yes Status: Acute Assessment and plan: Temperature has been below 96 since yesterday morning. Sepsis workup showed unremarkable chest x-ray and UA. Pro-calcitonin level was normal at 0.05. WBC was normal with no left shift seen. Denies dysuria cough or dyspnea. Continue to monitor. - Subjective Interval history: September 06. He was hospitalized in acute-care August 31- after presenting with dyspnea with acute CHF. He responded satisfactorily to treatment with decreased edema and dyspnea. He was discharged to swing bed for ongoing care needs. He has no new complaints today. September 10. He has no new complaints except he feels "lousy". He denies dyspnea or significant pain. He denies sensation of fevers or chills. - Constitutional Vitals: Temp Pulse Resp BP Pulse Ox 94.7 F L 57 22 179/87 96 09/10/18 14:42 09/10/18 06:00 09/09/18 06:42 09/10/18 06:00 09/10/18 06:00 Exam: He is lying in bed and appears in no acute distress. He is conversational but speech is slightly slow with trivial amount of dysarthria. Extremities show 2+ edema bilaterally on the lower legs and dorsum of the feet. The right arm has trace edema. There is no edema of the left arm. I reviewed his medications and lab results. Internal Medicine: Result - Labs CBC & Chem 7: 09/09/18 20:59 09/09/18 20:59 Labs: Short CBC 09/09/18 Range/Units 20:59 WBC 4.6 (4.3-11.1) K/mcL Hgb 9.4 L (12.9-16.9) g/dL Hct 28.3 L (37.5-50.1) % Plt Count 158 (140-400) K/mcL Neutrophils # 3.2 (1.6-8.9) K/mcL BMP 09/09/18 20:59 Sodium 145 Potassium 4.6 Chloride 111 H Carbon Dioxide 28 BUN 47 H Creatinine 1.16 Glucose 153 H Calcium 8.1 L Urine 09/09/18 Range/Units 22:30 Urine Color Yellow (Yellow) Urine Clarity Clear (Clear) Urine pH 6.0 (5.0-8.0) pH Units Ur Specific [place] 1.015 (1.010-1.025) Urine Protein 100 H (Neg-Trace) mg/dL Urine Glucose (UA) Normal (Normal) mg/dL - Impressions Impressions Chest X-Ray 09/09/18 20:31 IMPRESSION: Vascular congestion without overt pulmonary edema. Small area of focal airspace disease in the right lung base, atelectasis versus pneumo D/ / Kuldeep Leach MD / Kuldeep Leach MD Interpreting Provider: Kuldeep Leach MD Consult Discharge Plan - Plan Referrals: Agustin Burgess MD [Primary Care Provider] - 1 week
[2018-09-10] MEDS: ALPRAZolam 0.5 MG TABLET PO PRN (21:39)
[2018-09-11] MEDS: Isosorbide MONOnitrate (24 HR) 60 MG TAB.ER.24H PO SCH (03:58)
[2018-09-11] MEDS ORDERED: Bumetanide 1 MG TABLET PO SCH (04:00)
[2018-09-11] MEDS: *HR* Enoxaparin 40 MG/0.4 ML SYRINGE SQ SCH (06:07)
[2018-09-11 08:13] LABS: Basophils % 0.6 %; Eosinophils # 0.1 K/mcL (0.0-0.6); Eosinophils % 2.3 %; Hematocrit 26.7 % (37.5-50.1); Hemoglobin 8.7 g/dL (12.9-16.9); Immature Granulocytes % 0.8 % (0-4); Lymphocytes # 0.9 K/mcL (0.6-4.6); Lymphocytes % 19.6 %; Mean Corpuscular HGB Conc 32.6 g/dL (31.6-35.5); Mean Corpuscular Hemoglobin 34.3 pg (28.0-33.3); Mean Corpuscular Volume 105.1 fL (83.0-100.0); Mean Platelet Volume 11.9 fL (9.4-12.4); Monocytes # 0.4 K/mcL (0.0-1.3); Monocytes % 9.1 %; Neutrophils # 3.2 K/mcL (1.6-8.9); Platelet Count 154 K/mcL (140-400); Red Blood Count 2.54 M/mcL (4.19-5.50); Red Cell Distribution Width 13.9 % (11.5-14.5); Segmented Neutrophils % 67.6 %; White Blood Count 4.8 K/mcL (4.3-11.1)
[2018-09-11 11:39] LABS: BUN/Creatinine Ratio 40 (6-26); Blood Urea Nitrogen 48 mg/dL (8-23); Calcium 8.1 mg/dL (8.6-10.3); Carbon Dioxide 29 mEq/L (23-29); Chloride 112 mEq/L (98-107); Glucose 90 mg/dL (70-105); Osmolality,Calculated 310 (280-300); Potassium 4.8 mEq/L (3.5-5.1); Sodium 144 mEq/L (136-145); eGFR For African Americans > 60 (> 60); eGFR For Non-African Americans 57 (> 60)
[2018-09-11] MEDS: *HR* Digoxin 0.25 MG TABLET PO SCH (22:07)
[2018-09-12] MEDS: *HR* Enoxaparin 40 MG/0.4 ML SYRINGE SQ SCH (06:04)
[2018-09-12] MEDS: Bumetanide 1 MG TABLET PO SCH (09:15)
[2018-09-12] MEDS: Isosorbide MONOnitrate (24 HR) 60 MG TAB.ER.24H PO SCH (09:16)
[2018-09-12] MEDS: *HR* Digoxin 0.25 MG TABLET PO SCH (09:42)
--- NOTE | 2018-09-12 15:07 | Internal Med Progress Note ---
Date of Encounter: 09/12/18 Time of Encounter: 14:55 - Assessment and plan (1) Congestive heart failure Current Visit: No Status: Acute Assessment and plan: September 06. BN peptide has risen to 378. Start low-dose Bumex. Increase Coreg and Imdur. September 10. BN peptide unchanged. Increase Bumex, Coreg, and Imdur. September 12. Check chest x-ray today. Recheck labs in a.m. Qualifiers: Heart failure type: diastolic Heart failure chronicity: acute on chronic Qualified Code(s): I50.33 - Acute on chronic diastolic (congestive) heart failure (2) Macrocytic anemia Current Visit: No Status: Acute Assessment and plan: September 06. B12, folate, and TSH were normal on 09/02/2018. MMA will be checked. Hemoglobin has decreased to 9.2. Recheck CBC in a.m. September 10. Hemoglobin stable at 9.4. MMA normal. Continue to monitor. (3) Hypertension Current Visit: No Status: Chronic Assessment and plan: September 06. Increase Coreg and Imdur as above. Start Bumex. September 10. Blood pressure drifting slightly higher. Increase Bumex, Coreg, and Imdur. Qualifiers: Hypertension type: essential hypertension Qualified Code(s): I10 - Essential (primary) hypertension (4) CKD (chronic kidney disease) stage 3, GFR 30-59 ml/min Current Visit: No Status: Chronic Assessment and plan: September 06. Monitor renal indices. September 10. Creatinine decreased to 1.16 with estimated GFR 60. Continue to monitor. (5) Body temperature low Current Visit: Yes Status: Acute Assessment and plan: September 10. Temperature has been below 96 since yesterday morning. Sepsis workup showed unremarkable chest x-ray and UA. Pro-calcitonin level was normal at 0.05. WBC was normal with no left shift seen. Denies dysuria cough or dyspnea. Continue to monitor. September 12. Temperature has not normalized. MRI of brain will be done to further evaluate. - Subjective Interval history: September 06. He was hospitalized in acute-care August 31- after presenting with dyspnea with acute CHF. He responded satisfactorily to treatment with decreased edema and dyspnea. He was discharged to swing bed for ongoing care needs. He has no new complaints today. September 10. He has no new complaints except he feels "lousy". He denies dyspnea or significant pain. He denies sensation of fevers or chills. September 12. He has no new complaints. He admits he is slightly dyspneic but denies significant pain. - Constitutional Vitals: Temp Pulse Resp BP Pulse Ox 94.6 F L 50 20 164/81 95 09/12/18 06:40 09/12/18 06:40 09/12/18 06:40 09/12/18 06:40 09/12/18 06:40 Exam: He is resting comfortably in bed and appears in no acute distress. His affect is cheerful. His lungs show very few scattered rhonchi. Extremities show unchanged edema. Mental status shows appropriate conversation with slightly slow responses. I reviewed his medications and lab results. Internal Medicine: Result - Labs CBC & Chem 7: 09/11/18 07:13 09/11/18 07:13 Consult Discharge Plan - Plan Referrals: Agustin Burgess MD [Primary Care Provider] - 1 week
[2018-09-12] MEDS: Melatonin 3 MG TABLET PO SCH (22:20)
[2018-09-13 05:18] LABS: Basophils % 0.3 %; Eosinophils # 0.1 K/mcL (0.0-0.6); Eosinophils % 1.3 %; Hematocrit 26.9 % (37.5-50.1); Hemoglobin 8.9 g/dL (12.9-16.9); Immature Granulocytes % 0.7 % (0-4); Lymphocytes # 0.8 K/mcL (0.6-4.6); Lymphocytes % 12.2 %; Mean Corpuscular HGB Conc 33.1 g/dL (31.6-35.5); Mean Corpuscular Hemoglobin 34.8 pg (28.0-33.3); Mean Corpuscular Volume 105.1 fL (83.0-100.0); Monocytes # 0.5 K/mcL (0.0-1.3); Monocytes % 8.1 %; Neutrophils # 5.2 K/mcL (1.6-8.9); Platelet Count 148 K/mcL (140-400); Red Blood Count 2.56 M/mcL (4.19-5.50); Red Cell Distribution Width 13.9 % (11.5-14.5); Segmented Neutrophils % 77.4 %; White Blood Count 6.7 K/mcL (4.3-11.1)
[2018-09-13 05:42] LABS: BUN/Creatinine Ratio 42 (6-26); Blood Urea Nitrogen 54 mg/dL (8-23); Calcium 8.2 mg/dL (8.6-10.3); Carbon Dioxide 27 mEq/L (23-29); Chloride 110 mEq/L (98-107); Digoxin 0.6 ng/mL (0.8-2.0); Glucose 107 mg/dL (70-105); Osmolality,Calculated 311 (280-300); Potassium 5.2 mEq/L (3.5-5.1); Sodium 143 mEq/L (136-145); eGFR For African Americans > 60 (> 60); eGFR For Non-African Americans 53 (> 60)
[2018-09-13] MEDS: *HR* Enoxaparin 40 MG/0.4 ML SYRINGE SQ SCH (06:20)
[2018-09-13] MEDS: Bumetanide 1 MG TABLET PO SCH (08:10)
[2018-09-13] MEDS: Isosorbide MONOnitrate (24 HR) 60 MG TAB.ER.24H PO SCH (08:10)
[2018-09-13] MEDS: *HR* Digoxin 0.25 MG TABLET PO SCH (12:11)
[2018-09-13] MEDS ORDERED: Acetaminophen 325 MG TABLET PO PRN (14:54)
[2018-09-13] MEDS: Melatonin 3 MG TABLET PO SCH (20:23)
[2018-09-14] MEDS: *HR* Enoxaparin 40 MG/0.4 ML SYRINGE SQ SCH (05:36)
[2018-09-14] MEDS: Bumetanide 1 MG TABLET PO SCH (08:06)
[2018-09-14] MEDS: Isosorbide MONOnitrate (24 HR) 60 MG TAB.ER.24H PO SCH (08:07)
[2018-09-14] MEDS: *HR* Digoxin 0.25 MG TABLET PO SCH (08:07)
--- NOTE | 2018-09-14 11:53 | Internal Med Progress Note ---
Date of Encounter: 09/14/18 Time of Encounter: 11:35 - Assessment and plan (1) Congestive heart failure Current Visit: No Status: Acute Assessment and plan: September 06. BN peptide has risen to 378. Start low-dose Bumex. Increase Coreg and Imdur. September 10. BN peptide unchanged. Increase Bumex, Coreg, and Imdur. September 12. Check chest x-ray today. Recheck labs in a.m. September 14. Chest x-ray showed stable cardiomegaly with no acute process. Coreg was reduced because of bradycardia. Continue Bumex, Lanoxin, and Imdur. Qualifiers: Heart failure type: diastolic Heart failure chronicity: acute on chronic Qualified Code(s): I50.33 - Acute on chronic diastolic (congestive) heart failure (2) Macrocytic anemia Current Visit: No Status: Acute Assessment and plan: September 06. B12, folate, and TSH were normal on 09/02/2018. MMA will be checked. Hemoglobin has decreased to 9.2. Recheck CBC in a.m. September 10. Hemoglobin stable at 9.4. MMA normal. Continue to monitor. (3) Hypertension Current Visit: No Status: Chronic Assessment and plan: September 06. Increase Coreg and Imdur as above. Start Bumex. September 10. Blood pressure drifting slightly higher. Increase Bumex, Coreg, and Imdur. September 14. Blood pressures remain above desirable range. Add hydralazine. Qualifiers: Hypertension type: essential hypertension Qualified Code(s): I10 - Essential (primary) hypertension (4) CKD (chronic kidney disease) stage 3, GFR 30-59 ml/min Current Visit: No Status: Chronic Assessment and plan: September 06. Monitor renal indices. September 10. Creatinine decreased to 1.16 with estimated GFR 60. Continue to monitor. (5) Body temperature low Current Visit: Yes Status: Acute Assessment and plan: September 10. Temperature has been below 96 since yesterday morning. Sepsis workup showed unremarkable chest x-ray and UA. Pro-calcitonin level was normal at 0.05. WBC was normal with no left shift seen. Denies dysuria cough or dyspnea. Continue to monitor. September 12. Temperature has not normalized. MRI of brain will be done to further evaluate. September 14. MRI of brain unremarkable. Temperature remains subnormal. Continue to monitor. (6) Weakness Current Visit: Yes Status: Acute Assessment and plan: September 14. He has had ongoing intervention with PT and OT for several days. Progress is limited and inconsistent. I had a long discussion with patient and today about his situation and told him I expected him to require several more weeks of therapy before he could safely return home. After some deliberation they stated they wished him to be transitioned to [facility] for ongoing therapy needs. - Subjective Interval history: September 06. He was hospitalized in acute-care August 31- after presenting with dyspnea with acute CHF. He responded satisfactorily to treatment with decreased edema and dyspnea. He was discharged to swing bed for ongoing care needs. He has no new complaints today. September 10. He has no new complaints except he feels "lousy". He denies dyspnea or significant pain. He denies sensation of fevers or chills. September 12. He has no new complaints. He admits he is slightly dyspneic but denies significant pain. September 14. He has no new complaints. He was unable to perform well in therapy today with inability to do steps or significantly assist in dressing himself. - Constitutional Vitals: Temp Pulse Resp BP Pulse Ox 94.7 F L 48 20 165/83 97 09/14/18 07:01 09/14/18 07:01 09/14/18 07:01 09/14/18 07:01 09/14/18 07:01 Exam: He is sitting in a chair at bedside appears in no acute distress. Leg edema is not significantly changed. His verbal responses are slow but accurate. I reviewed his medications and lab results. Internal Medicine: Result - Labs CBC & Chem 7: 09/13/18 04:25 09/13/18 04:25 Consult Discharge Plan - Plan Referrals: Agustin Burgess MD [Primary Care Provider] - 1 week
[2018-09-14] MEDS: Melatonin 3 MG TABLET PO SCH (20:35)
[2018-09-15] MEDS: Nystatin POWDER 30 GM BOTTLE TP SCH ×2 (00:04→07:41)
[2018-09-15] MEDS: *HR* Enoxaparin 40 MG/0.4 ML SYRINGE SQ SCH (06:07)
[2018-09-15 06:28] LABS: Basophils % 0.2 %; Eosinophils # 0.1 K/mcL (0.0-0.6); Eosinophils % 0.7 %; Hematocrit 26.8 % (37.5-50.1); Hemoglobin 8.8 g/dL (12.9-16.9); Immature Granulocytes % 0.7 % (0-4); Lymphocytes # 0.9 K/mcL (0.6-4.6); Lymphocytes % 10.3 %; Mean Corpuscular HGB Conc 32.8 g/dL (31.6-35.5); Mean Corpuscular Hemoglobin 34.6 pg (28.0-33.3); Mean Corpuscular Volume 105.5 fL (83.0-100.0); Mean Platelet Volume 12.2 fL (9.4-12.4); Monocytes # 0.9 K/mcL (0.0-1.3); Monocytes % 10.2 %; Neutrophils # 6.5 K/mcL (1.6-8.9); Nucleated Red Blood Cells 0.2 /100 WBC (0); Platelet Count 146 K/mcL (140-400); Red Blood Count 2.54 M/mcL (4.19-5.50); Red Cell Distribution Width 14.1 % (11.5-14.5); Segmented Neutrophils % 77.9 %; White Blood Count 8.3 K/mcL (4.3-11.1)
[2018-09-15 06:55] VITALS: BP 151/76
[2018-09-15 06:57] LABS: Alanine Aminotransferase 21 Units/L (7-52); Albumin 3.3 g/dL (3.5-5.7); Albumin/Globulin Ratio 1.3 (1.1-2.2); Alkaline Phosphatase 92 Units/L (34-104); Aspartate Amino Transferase 19 Units/L (13-39); BUN/Creatinine Ratio 44 (6-26); Bilirubin,Total 0.3 mg/dL (0.3-1.0); Blood Urea Nitrogen 56 mg/dL (8-23); Calcium 8.2 mg/dL (8.6-10.3); Carbon Dioxide 26 mEq/L (23-29); Chloride 110 mEq/L (98-107); Digoxin < 0.3 ng/mL (0.8-2.0); Globulin 2.6 g/dL (2.4-3.5); Glucose 108 mg/dL (70-105); Osmolality,Calculated 308 (280-300); Potassium 5.1 mEq/L (3.5-5.1); Sodium 141 mEq/L (136-145); Total Protein 5.9 g/dL (6.4-8.9); eGFR For African Americans > 60 (> 60); eGFR For Non-African Americans 54 (> 60)
[2018-09-15] MEDS: Isosorbide MONOnitrate (24 HR) 60 MG TAB.ER.24H PO SCH (07:38)
[2018-09-15] MEDS: *HR* Digoxin 0.25 MG TABLET PO SCH (07:38)
[2018-09-15] MEDS: Bumetanide 1 MG TABLET PO SCH (07:38)
--- NOTE | 2018-09-15 09:23 | Discharge Summary ---
Orders not resulted at time of discharge: Pending orders 09/09/18 20:59 Culture,Blood [BC] Stat 09/11/18 07:13 Zinc AM 0400 Date of Encounter: 09/15/18 Time of Encounter: 09:15 - Discharge Diagnosis (1) Congestive heart failure Priority: Primary Status: Acute Qualifiers: Heart failure type: diastolic Heart failure chronicity: acute on chronic Qualified Code(s): I50.33 - Acute on chronic diastolic (congestive) heart failure (2) Macrocytic anemia Priority: Secondary Status: Acute (3) Hypertension Priority: Secondary Status: Chronic Qualifiers: Hypertension type: essential hypertension Qualified Code(s): I10 - Essential (primary) hypertension (4) CKD (chronic kidney disease) stage 3, GFR 30-59 ml/min Priority: Secondary Status: Chronic (5) Body temperature low Priority: Secondary Status: Resolved (6) Weakness Priority: Secondary Status: Chronic Hospital course: Mr. Myles is a 88 year old male who was hospitalized in acute-care August 31- after presenting with dyspnea with acute CHF. He responded satisfactorily to treatment with decreased edema and dyspnea. He was discharged to swing bed for ongoing care needs. He had ongoing physical therapy and occupational therapy intervention in swing bed. He made minimal progress overall. It was felt he would require several more weeks of therapy before consideration for return to independent living in the home. Arrangements were complete on September 15 him to be discharged to [facility] for ongoing rehabilitation therapy. Hemoglobin was stable at 8.8 on September 15. Stool was heme positive . This can be further addressed as an outpatient. Etiology of macrocytosis was not determined with unremarkable B12, MMA, folate, and TSH. Azotemia minimally changed with BUN and creatinine being 56 and 1.26 respectively on day of discharge this august GFR 54. He remained on digoxin, Imdur, Bumex, and Coreg for heart failure. BN peptide was stable at 444 on September 13. He will follow with me at [facility]3]. - Time Spent with Patient Total time spent providing and/or coordinating discharge services: - Discharge Medications Prescriptions: New Acetaminophen [Tylenol] 650 mg PO Q6HR PRN tablet PRN Reason: Fever Greater Than 101.2 F Melatonin 6 mg PO HS tablet Isosorbide MONOnitrate (24 HR) [Imdur] 120 mg PO DAILY tab.er.24h Digoxin [Lanoxin] 0.25 mg PO DAILY tablet Bumetanide [Bumex] 0.5 mg PO DAILY tablet Continued Allopurinol [Zyloprim 100 MG] 300 mg PO DAILY Carvedilol [Coreg] 6.25 mg PO BIDWM tablet Tamsulosin [Flomax] 0.8 mg PO DAILY 365 Days cap.er.24h Enoxaparin [Lovenox] 40 mg SQ 0600 syringe Albuterol Neb [Proventil Neb] 2.5 mg IH Q2H PRN inhsol PRN Reason: Shortness Of Breath/Wheezing Discontinued Isosorbide MONOnitrate (24 HR) [Imdur] 30 mg PO DAILY tab.er.24h Home Medications: Allopurinol [Zyloprim 100 MG] 300 mg PO DAILY 08/31/18 [History] Albuterol Neb [Proventil Neb] 2.5 mg IH Q2H PRN inhsol 09/04/18 [Rx] Carvedilol [Coreg] 6.25 mg PO BIDWM tablet 09/04/18 [Rx] Enoxaparin [Lovenox] 40 mg SQ 0600 syringe 09/04/18 [Rx] Tamsulosin [Flomax] 0.8 mg PO DAILY 365 Days cap.er.24h 09/04/18 [Rx] Acetaminophen [Tylenol] 650 mg PO Q6HR PRN tablet 09/15/18 [Rx] Bumetanide [Bumex] 0.5 mg PO DAILY tablet 09/15/18 [Rx] Digoxin [Lanoxin] 0.25 mg PO DAILY tablet 09/15/18 [Rx] Isosorbide MONOnitrate (24 HR) [Imdur] 120 mg PO DAILY tab.er.24h 09/15/18 [Rx] Melatonin 6 mg PO HS tablet 09/15/18 [Rx] Allergies/Adverse Reactions: Allergy/AdvReac Type Severity Reaction Status Date / Time No Known Allergies Allergy Unverified 07/29/15 12:09 Date of admission: 09/04/18 14:46 Primary care physician: Agustin Burgess MD Consults: 09/04/18 14:42 Consult to Occupational Therapy [CONS] Routine Comment: Evaluate, develop and implement POC Reason for Consult: Evaluate, develop and implement POC Does patient have active BEDREST order?: No Is patient medically & hemodynamically stable?: Yes Patient assessed for mobility or mobilized this visit?: No Consult to Physical Therapy [CONS] Routine Comment: Evaluate, develop and implement POC Reason for Consult: Evaluate, develop and implement POC Does patient have active BEDREST order?: No Is patient medically & hemodynamically stable?: Yes Patient assessed for mobility or mobilized this visit?: No - Constitutional Vitals: Temp Pulse Resp BP Pulse Ox 97.9 F 52 22 151/76 98 09/15/18 06:54 09/15/18 06:54 09/15/18 06:54 09/15/18 06:54 09/15/18 06:54 - Patient Status Disposition: Transfer SNF - Discharge Instructions - Diet and Activity Activity: as per physical therapy Diet: low fat, low cholesterol, low salt diet
--- NOTE | 2018-09-15 09:33 | Physician Discharge Referral ---
ExtendedCare Referral Info Transfer To: [facility] Provider in Charge: [place] Provider in Charge after Transfer: PCP Joy) Institutional Level of Care: Skilled - Diagnosis (1) Congestive heart failure Priority: Primary Status: Acute (2) Macrocytic anemia Priority: Secondary Status: Acute (3) Hypertension Priority: Secondary Status: Chronic (4) CKD (chronic kidney disease) stage 3, GFR 30-59 ml/min Priority: Secondary Status: Chronic (5) Body temperature low Priority: Secondary Status: Resolved (6) Weakness Priority: Secondary Status: Chronic Prognosis: Fair Aware of Diagnosis: Patient, Family Aware of Prognosis: Patient, Family - Transfer Medications Home Medications: Allopurinol [Zyloprim 100 MG] 300 mg PO DAILY 08/31/18 [History] Albuterol Neb [Proventil Neb] 2.5 mg IH Q2H PRN inhsol 09/04/18 [Rx] Carvedilol [Coreg] 6.25 mg PO BIDWM tablet 09/04/18 [Rx] Enoxaparin [Lovenox] 40 mg SQ 0600 syringe 09/04/18 [Rx] Tamsulosin [Flomax] 0.8 mg PO DAILY 365 Days cap.er.24h 09/04/18 [Rx] Acetaminophen [Tylenol] 650 mg PO Q6HR PRN tablet 09/15/18 [Rx] Bumetanide [Bumex] 0.5 mg PO DAILY tablet 09/15/18 [Rx] Digoxin [Lanoxin] 0.25 mg PO DAILY tablet 09/15/18 [Rx] Isosorbide MONOnitrate (24 HR) [Imdur] 120 mg PO DAILY tab.er.24h 09/15/18 [Rx] Melatonin 6 mg PO HS tablet 09/15/18 [Rx] Allergies/Adverse Reactions: Allergy/AdvReac Type Severity Reaction Status Date / Time No Known Allergies Allergy Unverified 07/29/15 12:09 - Respiratory Orders Oxygen / L per min (2 L/m by nasal cannula as needed to keep sat greater than 90%.) Smoking Cessation: Smoking cessation has been advised. For more information, call the [place] Tobacco Quit Line at 6-351-DICI-NOW. - Lab Orders Lab Orders: Other (include drug levels w/frequency) (CBC with differential, BMP, BNP peptide, magnesium level, digoxin level in one week) - Advance Directives Code Status: Full Code - Mobility Orders Other (Walker with assistance) - Rehabiliation Orders Rehab Potential: Fair Rehab Orders: Evaluation for Physical Therapy, Evaluation for Occupational Therapy - Diet Orders No Added Salt (RENEE), Cardiac CERTIFICATION: I certify that the transfer of the above named patient to an Extended Care Facility is necessary for the continuing treatment of the diagnosis listed. The above information is true and accurate reflection of patient's current condition. Confidential - Redisclosure prohibited without a patient's written consent.
== END 2018-09-15 13:21 | DRG 291 ==
LOC: INPPIK 14:46
PROVIDERS: ADMIT Internal Medicine; ATTEND Internal Medicine